=== PATIENT | male | born 1990 | race American Indian/Alaskan Native ===

== ENCOUNTER 2016-09-12 20:35 | Emergency (ER) | payer SELFPAY ==
--- NOTE | 2016-09-13 02:05 | XRay Report ---
FINAL REPORT PROCEDURE: XR HAND 3 RT TECHNIQUE: RIGHT hand radiographs, AP, lateral, and oblique views. CPT 80881-SP HISTORY: PAIN RIGHT INDEX FINGER COMPARISON: No prior studies are available for comparison. FINDINGS: Fracture (s) and/or Dislocation(s): None . Alignment: Normal . Joint space(s): Normal . Soft tissues: Normal . Bone mineralization: Normal . Foreign bodies: None . IMPRESSION: There is no evidence of an acute fracture or dislocation..
[2016-09-13] MEDS ORDERED: NORCO 5/325 PO ONE (02:30)
[2016-09-13] MEDS ORDERED: TORADOL IM ONE (02:30)
--- NOTE | 2016-09-13 02:59 | Emergency Department Report ---
HPI - General Chief Complaint: Extremity Injury, Upper Time Seen by Provider: 09/13/16 01:27 - HPI HPI: 26-year-old male presents today complaining of right index finger pain post slamming it in the car door at 6 1900 hrs. yesterday. Describes his pain as 10 out of 10 constant, sharp pain. Denies numbness, weakness, paresthesias. Denies fever, chills, nausea, vomiting, chest pain, shortness of breath, abdominal pain. Positive for bruising. Tried applying ice with minimal relief. ED Past Medical Hx - Past Medical History Previous Medical History?: No - Surgical History Past Surgical History?: No - Social History Smoking Status: Current Every Day Smoker Substance Use Type: None - Medications Home Medications: Home Medications Medication Instructions Recorded Confirmed Last Taken Type traMADol [Ultram 50 MG tab] 50 mg PO Q6HR PRN #20 tablet 09/13/16 Unknown Rx ED Review of Systems ROS: Stated complaint: RT INDEX FINGER INJURY Other details as noted in HPI Constitutional: denies: chills, fever, malaise Eyes: denies: eye pain ENT: denies: ear pain, throat pain, congestion Respiratory: denies: cough, shortness of breath, wheezing Cardiovascular: denies: chest pain, palpitations Endocrine: no symptoms reported Gastrointestinal: denies: abdominal pain, nausea, vomiting Musculoskeletal: joint swelling, arthralgia Neurological: denies: headache, weakness, numbness, paresthesias Physical Exam - Physical Exam Vital Signs: Vital Signs 09/12/16 09/13/16 09/13/16 20:55 02:48 02:49 Temperature 98.1 F Pulse Rate 71 Respiratory 16 20 20 Rate Blood Pressure 138/83 O2 Sat by Pulse 100 Oximetry Physical Exam: GENERAL: The patient is well-developed and well-nourished. Patient is in NAD. HEAD: Normocephalic. Atraumatic. CHEST/LUNGS: Clear to auscultation throughout. HEART/CARDIOVASCULAR: Regular rate and rhythm. No murmurs, rubs or gallops. ABDOMEN: Abdomen is soft, nontender. Bowel sounds normoactive. No guarding or rebound tenderness. RIGHT HAND: Full wrist and digit range of motion. Tenderness to palpation over distal aspect of right index finger. Positive for ecchymosis and subungual hematoma of right index finger. Minimal edema noted. Normal sensation. 2 point discrimination intact. Peripheral pulses intact. Capillary refill less than 2 seconds. NEURO: Alert and oriented x 3. Normal gait. ED Course Vital Signs 09/12/16 09/13/16 09/13/16 20:55 02:48 02:49 Temperature 98.1 F Pulse Rate 71 Respiratory 16 20 20 Rate Blood Pressure 138/83 O2 Sat by Pulse 100 Oximetry ED Medical Decision Making - Lab Data Vital Signs 09/12/16 09/13/16 09/13/16 20:55 02:48 02:49 Temperature 98.1 F Pulse Rate 71 Respiratory 16 20 20 Rate Blood Pressure 138/83 O2 Sat by Pulse 100 Oximetry - Medical Decision Making 26-year-old male presents today with right index finger pain. Having it in a car door. His x-ray results reveal no fracture or dislocation. Trephination was attempted. Patient reports pain control post medication. Patient is in no acute distress at this time. He will be discharged home and is encouraged to follow up with a primary care provider. He will be sent home on tramadol and is encouraged to return to the emergency room for any worsening symptoms. Critical care attestation.: If time is entered above; I have spent that time in minutes in the direct care of this critically ill patient, excluding procedure time. ED Disposition Clinical Impression: Finger contusion Qualifiers: Encounter type: initial encounter Finger: index finger Damage to nail status: with damage Laterality: right Qualified Code(s): S60.121A - Contusion of right index finger with damage to nail, initial encounter Disposition: DISCHARGED TO HOME OR SELFCARE Is pt being admited?: No Does the pt Need Aspirin: No Condition: Stable Instructions: Subungual Hematoma (ED), Finger Sprain (ED) Additional Instructions: Follow-up with primary care provider. Return to the emergency department if symptoms worsen. Prescriptions: traMADol [Ultram 50 MG tab] 50 mg PO Q6HR PRN #20 tablet PRN Reason: Pain Referrals: PRIMARY CARE, [Primary Care Provider] - 3-5 Days [facility] [Outside] - 3-5 Days Forms: Work/School Release Form(ED), Accompanied Note Time of Disposition: 03:26
[2016-09-13 03:55] VITALS: BP 145/85
== END 2016-09-13 03:57 | disposition home or self-care (01) ==
LOC: ED 20:35
DX: S60.121A Contusion of right index finger with damage to nail, initial encounter (principal); F17.200 Nicotine dependence, unspecified, uncomplicated; W22.8XXA Striking against or struck by other objects, initial encounter; Y93.9 Activity, unspecified; Y92.9 Unspecified place or not applicable; Y99.9 Unspecified external cause status
CPT/HCPCS: 29130; 73130; 96372; 99283; J1885